=== PATIENT | female | born 1955 | race Caucasian/White ===

== ENCOUNTER 2019-10-20 17:04 | Emergency (ER) | payer OTHER ==
[~2019-10-20] VITALS: Ht 165.1 cm; Wt 90.7 kg
[2019-10-20] MEDS ORDERED: SYNTHROID88 MCG (17:32)
[2019-10-20] MEDS ORDERED: BISOPROLOL FUMAR5 MG (17:33)
[2019-10-20] MEDS ORDERED: CANDESARTAN-HC1 EAC2 (17:33)
[2019-10-20] MEDS ORDERED: PEPCID AC20 MG PO (22:22)
[2019-10-20] MEDS ORDERED: NEURONTIN300 MG PO (22:22)
== END 2019-10-20 22:34 | disposition home or self-care (01) ==
LOC: ER 17:04
DX: M51.17 Intervertebral disc disorders with radiculopathy, lumbosacral region (principal)

== ENCOUNTER 2025-02-10 11:15 | Inpatient (IN) | payer OTHER ==
[~2025-02-10] VITALS: Ht 152.4 cm; Wt 94.8 kg
[~2025-02-10 11:15] MED LIST: BISOPROLOL FUMAR5 MG; CANDESARTAN-HC1 EAC2; NEURONTIN300 MG PO; PEPCID AC20 MG PO; SYNTHROID88 MCG
[2025-02-10 14:10] VITALS: BP 151/78
[2025-02-14] MEDS ORDERED: VANCOMYCIN HCL 1,000 MG VIAL ONE (09:15)
[2025-02-14] MEDS ORDERED: CEFAZOLIN SODIUM 1,000 MG VIAL ONE ×2 (09:15→16:16)
[2025-02-14] MEDS ORDERED: PERCOCET 5-3251 EACH PO (10:53)
[2025-02-14] MEDS ORDERED: AMOX-CLAV 875-1 EACH PO (10:54)
[2025-02-14] MEDS ORDERED: MEDROLPACK PO (10:54)
[2025-02-14] MEDS ORDERED: GABAPENTIN100 M2 PO (10:55)
[2025-02-14] MEDS ORDERED: NEURONTIN800 MG PO (10:56)
[2025-02-14] MEDS ORDERED: COLACE100 MG PO (10:57)
[2025-02-14] MEDS ORDERED: ZOFRAN8 MG PO (10:57)
[2025-02-14] MEDS ORDERED: ENALAPRILAT DIHYDRATE 1.25 MG/ML VIAL IV PRN (11:00)
[2025-02-14] MEDS ORDERED: 0.9 % SODIUM CHLORIDE 1,000 ML IV SCH (11:00)
[2025-02-14] MEDS ORDERED: PROMETHAZINE HCL 50 MG/ML AMPUL IM PRN (11:00)
[2025-02-14] MEDS ORDERED: IOVERSOL 320 MG/ML - 50 ML VIAL IV ONE (11:20)
[2025-02-14] MEDS ORDERED: DOCUSATE SODIUM 100MG CAP PO SCH (13:00)
[2025-02-14] MEDS ORDERED: MORPHINE SULFATE 4 MG/ML CARTRIDGE IV SCH (13:00)
[2025-02-14] MEDS ORDERED: METHYLPREDNISOLONE SOD SUCC 125 MG VIAL IV SCH (17:00)
[2025-02-14] MEDS ORDERED: CEFAZOLIN SODIUM 1,000 MG in 0.9 % SODIUM CHLORIDE 50 ML IV SCH (17:00)
[2025-02-14] MEDS ORDERED: METHYLPREDNISOLONE SOD SUCC 125 MG VIAL ONE (17:48)
[2025-02-14 19:29] VITALS: BP 151/72; O2SAT 96
[2025-02-14] MEDS ORDERED: ACETAMINOPHEN 500 MG GEL..CAP PO SCH (20:00)
[2025-02-14] MEDS ORDERED: VANCOMYCIN HCL 1,000 MG VIAL IV SCH (21:00)
[2025-02-14] MEDS ORDERED: GABAPENTIN 800 MG TABLET PO SCH (21:00)
[2025-02-15] VITALS (7 sets, daily range): BP systolic 104–156; BP diastolic 55–77; O2SAT 97–100
[2025-02-15] MEDS ORDERED: SODIUM CHLORIDE 0.45 % 1,000 ML IV SCH
[2025-02-15] MEDS ORDERED: LEVOTHYROXINE SODIUM 88 MCG TABLET PO SCH (06:00)
[2025-02-15] MEDS ORDERED: OxyCODONE HCL 5 MG TABLET (ROXICODONE) PO PRN (06:01)
[2025-02-15 06:54] LABS: BASO % 0.1 % (0.1-1.2); EOS # 0.00 (0.04-0.54); EOS % 0.0 % (0.7-7.0); LYMPH # 0.90 (1.18-3.74); LYMPH % 6.4 % (19.3-53.1); MEAN PLATELET VOLUME 10.30 fl (9.4-12.4); MONO # 0.29 (0.24-0.82); MONO % 2.1 % (4.7-12.5); NEUT # 12.86 (1.56-6.13); NEUT % 90.9 % (34.0-71.1); RED CELL DISTRIBUTION WIDTH 12.5 % (11.6-14.4)
[2025-02-15 07:23] LABS: BUN CREA RATIO 20.0 (7.0-25.0); CREATININE SERUM 0.85 mg/dL (0.55-1.02); GFR 66.51; OSMOLALITY SERUM 292.0 MOSM/KG (275-295)
[2025-02-15 07:27] LABS: GLUCOSE FASTING 232.0 mg/dL (65-100)
[2025-02-15] MEDS ORDERED: AMLODIPINE BESYLATE 5 MG TABLET PO SCH (09:00)
[2025-02-15] MEDS ORDERED: TAMSULOSIN HCL 0.4 MG CAP PO SCH (09:00)
[2025-02-15] MEDS ORDERED: CANDESARTAN CILEXETIL 32 MG TABLET PO SCH (09:00)
[2025-02-15] MEDS ORDERED: HYDROCHLOROTHIAZIDE 25 MG TABLET PO SCH (09:00)
[2025-02-16] VITALS: BP 131/71; O2SAT 97
[2025-02-16 03:50] VITALS: BP 121/64; O2SAT 95
[2025-02-16 08:00] VITALS: BP 148/73; O2SAT 98
== END 2025-02-16 12:37 | disposition home or self-care (01) | DRG 402 ==
LOC: PED 02-14 09:00 → O/R 02-14 09:00 → SURH 02-14 10:00 → PED 02-14 15:40
PROVIDERS: ADMIT Orthopaedic Surgery Orthopaedic Surgery of the Spine; ATTEND Orthopaedic Surgery Orthopaedic Surgery of the Spine
PROC: 0SG30K1 Fusion of Lumbosacral Joint with Nonautologous Tissue Substitute, Posterior Approach, Posterior Column, Open Approach (ICD-10-PCS; 2025-02-14)
PROC: 0ST40ZZ Resection of Lumbosacral Disc, Open Approach (ICD-10-PCS; 2025-02-14)
PROC: 0QB30ZZ Excision of Left Pelvic Bone, Open Approach (ICD-10-PCS; 2025-02-14)
PROC: 07DR0ZZ Extraction of Iliac Bone Marrow, Open Approach (ICD-10-PCS; 2025-02-14)
PROC: 4A11X4G Monitoring of Peripheral Nervous Electrical Activity, Intraoperative, External Approach (ICD-10-PCS; 2025-02-14)
PROC: 4A12X4Z Monitoring of Cardiac Electrical Activity, External Approach (ICD-10-PCS; 2025-02-14)
PROC: XRGD0R7 Fusion of Lumbosacral Joint using Custom-Made Anatomically Designed Interbody Fusion Device, Open Approach, New Technology Group 7 (ICD-10-PCS; principal; 2025-02-14 10:00)
DX: M51.17 Intervertebral disc disorders with radiculopathy, lumbosacral region (principal); S32.059A Unspecified fracture of fifth lumbar vertebra, initial encounter for closed fracture; M48.07 Spinal stenosis, lumbosacral region; M43.17 Spondylolisthesis, lumbosacral region; I10 Essential (primary) hypertension; E03.9 Hypothyroidism, unspecified